=== PATIENT | male | born 1980 | race Caucasian/White ===

== ENCOUNTER → 2017-04-15 | Outpatient (CLI) | payer BC ==
[2017-04-15 06:51] LABS: BASO # 0.1 K/mm3 (0.0-0.2); BASO % 1.3 % (0.0-1.0); EOS # 0.4 K/mm3 (0.0-0.50); EOS % 6.7 % (0.0-3.0); LARGE UNSTAINED CELL # 0.1 K/mm3 (0.0-0.4); LARGE UNSTAINED CELL % 2.1 % (0.0-4.0); LYMPH # 2.3 K/mm3 (1.5-4.5); LYMPH % 38.9 % (24.0-44.0); MEAN CORPUSCULAR HEMOGLOBIN 30.3 pg (27.0-33.0); MEAN CORPUSCULAR HGB CONC 34.3 g/dl (32.0-36.5); MEAN CORPUSCULAR VOLUME 88.4 fl (80.0-96.0); MONO # 0.3 K/mm3 (0.0-0.8); MONO % 5.4 % (0.0-5.0); NEUTROPHILS # 2.5 K/mm3 (1.8-7.7); NEUTROPHILS % 45.7 % (36.0-66.0); PLATELET COUNT, AUTOMATED 228 k/mm3 (150-450); RED CELL DISTRIBUTION WIDTH 12.8 % (11.5-14.5); WHITE BLOOD COUNT 5.5 K/mm3 (4.0-10.0)
[2017-04-15 07:12] LABS: ALBUMIN/GLOBULIN RATIO 1.08 (1.00-1.93); ALKALINE PHOSPHATASE 49 U/L (45-117); ALT/SGPT 40 U/L (12-78); ANION GAP 9 MEQ/L (8-16); AST/SGOT 24 U/L (15-37); BILIRUBIN,TOTAL 0.3 MG/DL (0.2-1.0); BLOOD UREA NITROGEN 22 MG/DL (7-18); CALCIUM LEVEL 8.8 MG/DL (8.5-10.1); CARBON DIOXIDE LEVEL 28 MEQ/L (21-32); CHLORIDE LEVEL 104 MEQ/L (98-107); CHOLESTEROL LEVEL 265 MG/DL (<200); CREATININE FOR GFR 1.04 MG/DL (0.70-1.30); GLOMERULAR FILTRATION RATE > 60.0 (>60); GLUCOSE, FASTING 92 MG/DL (70-105); POTASSIUM SERUM 4.6 MEQ/L (3.5-5.1); SODIUM LEVEL 141 MEQ/L (136-145); TOTAL PROTEIN 7.7 GM/DL (6.4-8.2); TRIGLYCERIDES LEVEL 244 MG/DL (<150)
== END ==
LOC: M LAB 06:19
PROVIDERS: ATTEND Physician Assistant Medical
DX: Z00.00 Encounter for general adult medical examination without abnormal findings (principal); F41.9 Anxiety disorder, unspecified; Z83.49 Family history of other endocrine, nutritional and metabolic diseases

== ENCOUNTER → 2017-04-21 | Outpatient (CLI) | payer BC ==
[2017-04-21 14:04] LABS: MEAN CORPUSCULAR HEMOGLOBIN 31.1 pg (27.0-33.0); MEAN CORPUSCULAR HGB CONC 34.9 g/dl (32.0-36.5); RED CELL DISTRIBUTION WIDTH 12.7 % (11.5-14.5); WHITE BLOOD COUNT 7.5 K/mm3 (4.0-10.0)
[2017-04-21 14:10] LABS: BASOPHILS 1 % (0-4); EOSINOPHILS 4 % (0-5)
[2017-04-21 15:06] LABS: ALBUMIN 4.4 GM/DL (3.2-5.2); ALBUMIN/GLOBULIN RATIO 1.16 (1.00-1.93); ALKALINE PHOSPHATASE 61 U/L (45-117); ALT/SGPT 62 U/L (12-78); ANION GAP 6 MEQ/L (8-16); AST/SGOT 32 U/L (15-37); BILIRUBIN,TOTAL 0.5 MG/DL (0.2-1.0); BLOOD UREA NITROGEN 16 MG/DL (7-18); CALCIUM LEVEL 9.2 MG/DL (8.5-10.1); CARBON DIOXIDE LEVEL 30 MEQ/L (21-32); CHLORIDE LEVEL 102 MEQ/L (98-107); CREATININE FOR GFR 0.96 MG/DL (0.70-1.30); GLOMERULAR FILTRATION RATE > 60.0 (>60); GLUCOSE, FASTING 90 MG/DL (70-105); POTASSIUM SERUM 4.3 MEQ/L (3.5-5.1); SODIUM LEVEL 138 MEQ/L (136-145); TOTAL PROTEIN 8.2 GM/DL (6.4-8.2)
--- NOTE | 2017-04-21 16:20 | REP ---
Acute abdominal series: Four views. History: Left lower quadrant tenderness. Left lower quadrant pain. Findings: Upright chest radiograph is compared with the October 15, 2013 prior study. The lungs are well inflated and clear. The pleural angles are sharp. Heart size is normal. Pulmonary vasculature is not increased. There is no evidence of infiltrate or free subdiaphragmatic air. Supine and erect views of the abdomen show scattered air filled loops of nondilated large and small bowel. No significant air fluid level is seen. No evidence of obstruction, mass or free air. Psoas margins and flank stripes are intact. There are calcific opacities projecting over the lower pole regions of both kidneys consistent with intrarenal calculi. The largest of these is on the left measuring 4 to 5 mm in greatest diameter. There appear to be multiple calculi on the left. Impression: 1. Nonspecific bowel gas loops. 2. Intrarenal calculi suspected at the lower pole of each kidney. 3. There is a calcific opacity in the right pelvis, which may be a phlebolith. Signed by Abelardo Cortez MD 04/21/2017 05:01 P
== END ==
LOC: M WUC 12:26
PROVIDERS: ATTEND Physician Assistant
DX: R10.814 Left lower quadrant abdominal tenderness (principal)

== ENCOUNTER 2018-01-06 04:20 | Emergency (ER) | payer BC | END 2018-01-06 07:01 | disposition home or self-care (01) | LOC: M ED 04:20 | DX: K13.0 Diseases of lips (principal); K13.79 Other lesions of oral mucosa; K21.9 Gastro-esophageal reflux disease without esophagitis; Z79.899 Other long term (current) drug therapy | CPT/HCPCS: 99283 ==

== ENCOUNTER → 2018-01-19 | Outpatient (REF) | payer BC ==
[2018-01-19 18:49] LABS: RHEUMATOID FACTOR QUANT < 10.0 IU/ML (<15.0)
[2018-01-19 18:49] LABS: C REACTIVE PROTEIN QUANTITATIV < 0.30 MG/DL (0.00-0.30)
[2018-01-22 00:07] LABS: ANTINUCLEAR ANTIBODIES DIRECT Negative (Negative); TISSUE TRANSGLUTAMINASE IgA <2 U/mL (0-3)
== END ==
LOC: M LAB REF 17:24
DX: M79.1 Myalgia (principal); Z84.89 Family history of other specified conditions; M25.50 Pain in unspecified joint
CPT/HCPCS: 86256

== ENCOUNTER → 2018-10-07 | Outpatient (REF) | payer BC ==
[~2018-10-07] MED LIST: ADVI200T PO; AUGM875T28 PO; MULT1TAB10 PO; OMEP40CA2 PO; [UNRECOGNIZED DRUG - CODE] MT
[2018-10-07 12:03] LABS: INFLUENZA A AMPLIFICATION NEGATIVE (NEGATIVE); INFLUENZA B AMPLIFICATION NEGATIVE (NEGATIVE)
== END ==
LOC: M LAB REF 11:22
PROVIDERS: ATTEND Physician Assistant
DX: R68.89 Other general symptoms and signs (principal)

== ENCOUNTER → 2019-02-02 | Outpatient (REF) | payer BC | LOC: M LAB REF 13:55 | PROVIDERS: ATTEND Physician Assistant | DX: R19.7 Diarrhea, unspecified (principal) ==

== ENCOUNTER → 2020-05-04 | Outpatient (REF) | payer BC ==
[~2020-05-04] MED LIST changes: -OMEP40CA2 PO; +OMEP40CA97 PO
[2020-05-07 15:07] LABS: TESTOSTERONE FREE (DIRECT) 17.9 pg/mL (6.8-21.5)
== END ==
LOC: M LAB REF 17:11
PROVIDERS: ATTEND Physician Assistant Medical
DX: E29.1 Testicular hypofunction (principal)

== ENCOUNTER → 2020-12-21 | Outpatient (REF) | payer BC ==
[2020-12-21 13:03] LABS: INFLUENZA A AMPLIFICATION NEGATIVE (NEGATIVE); INFLUENZA B AMPLIFICATION NEGATIVE (NEGATIVE)
== END ==
LOC: M LAB REF 12:08
PROVIDERS: ATTEND Physician Assistant
DX: R50.9 Fever, unspecified (principal); M79.10 Myalgia, unspecified site

== ENCOUNTER → 2021-07-19 | Outpatient (CLI) | payer BC ==
[~2021-07-19] MED LIST changes: +OMEP40CA4 PO; -OMEP40CA97 PO
--- NOTE | 2021-07-19 09:45 | REP ---
INDICATION: SHORTNESS OF BREATH. COMPARISON: 04/21/2017 frontal views TECHNIQUE: PA and lateral FINDINGS: The superior mediastinal structures are midline. The cardiac silhouette is unremarkable in size, shape, and position. The diaphragmatic surfaces of the lungs are regular, and the costophrenic angles are clear. The pulmonary dillon are clear. The imaged osseous structures are intact. IMPRESSION: There is no acute cardiopulmonary disease. <Electronically signed by Horace Doss > 07/19/21 0939
== END ==
LOC: M WUC 07:56
PROVIDERS: ATTEND Physician Assistant Medical
DX: R06.02 Shortness of breath (principal)

== ENCOUNTER → 2021-07-24 | Outpatient (REF) | payer BC | LOC: M SMT 16:58 | PROVIDERS: ATTEND Urology | DX: Z30.2 Encounter for sterilization (principal) ==

== ENCOUNTER → 2021-10-29 | Outpatient (REF) | payer BC ==
[2021-10-29 09:57] LABS: SEMEN APPEARANCE OPAQUE (OPAQUE); SEMEN VISCOSITY LIQUID (LIQUID); SEMEN VOLUME 3.5 ml (2.0-5.0); SEMEN pH 8.5 (7.0-8.0); WBC CONCENTRATION >1 M/ml (<=1 M/ml)
== END ==
LOC: M SMT 09:10
PROVIDERS: ATTEND Urology
DX: Z30.2 Encounter for sterilization (principal)

== ENCOUNTER → 2023-02-04 | Outpatient (CLI) | payer BC | LOC: M RAD 15:18 | PROVIDERS: ATTEND Physician Assistant Medical | DX: N50.82 Scrotal pain (principal) ==

== ENCOUNTER → 2023-07-08 | Outpatient (CLI) | payer BC | LOC: M PLAIMG 12:20 | PROVIDERS: ATTEND Physician Assistant Medical | DX: R91.8 Other nonspecific abnormal finding of lung field (principal) ==

== ENCOUNTER → 2024-09-09 | Outpatient (REF) | payer BC | LOC: M LAB REF 16:17 | PROVIDERS: ATTEND Physician Assistant Medical | DX: R68.82 Decreased libido (principal) ==

== ENCOUNTER → 2024-12-14 | Outpatient (REF) | payer BC ==
[2024-12-14 17:44] LABS: CK-MB VALUE MASS < 1.0 NG/ML (<3.6)
[2024-12-14 17:48] LABS: CPK CREATINE PHOSPHOKINASE 149 U/L (46-171); MB/CK RELATIVE INDEX 0.67 (< OR =4)
== END ==
LOC: M LAB REF 17:24
PROVIDERS: ATTEND Physician Assistant Medical
DX: R07.89 Other chest pain (principal); R00.2 Palpitations

== ENCOUNTER → 2025-06-02 | Outpatient (CLI) | payer BC | LOC: M RAD 10:43 | PROVIDERS: ATTEND Internal Medicine | DX: N50.812 Left testicular pain (principal); N50.3 Cyst of epididymis ==